=== PATIENT | male | born 1995 | race Caucasian/White ===

== ENCOUNTER 2023-08-14 14:31 | Outpatient (CLI) | payer BC, SELFPAY ==
--- NOTE | 2023-08-14 15:00 | USCV_ITS ---
Burt Olmedo Age: 28 Gender: M : 1995 Exam Date: 08/14/2023 14:53 Ordering Phys: Brad Mcbride MD Technologist: GUICHO Exam Location: [facility] – [place], [place]_ Indication: DIZZINESS Risk Factors: Previous Vascular Surgery: Right Brachial BP: / Left Brachial BP: / Right Left Velocity (cm/s) Spectral Plaque Velocity (cm/s) Spectral Plaque Syst/Diast Broadening Syst/Diast Broadening 107.50/19.90 Prox CCA 103.70/ 15.70 92.90/ 16.20 Mid CCA 97.70 / 20.00 86.20/ 15.40 Distal CCA 77.60 / 13.70 64.40/ 20.90 Prox ICA 70.00 / 15.80 75.30/ 26.30 Mid ICA 54.10 / 17.70 50.00/ 18.10 Distal ICA 54.10 / 19.30 104.30 ECA 102.00 0.90 ICA/CCA 0.90 Antegrade Vertebral Antegrade 45.60/ 8.20 cm/s 45.90/ 9.00 cm/s Tri Subclavian Tri 122.5 160.4 0 0 FINDINGS Comparison: none available. No significant elevation of systolic or diastolic velocities. No significant amount of calcified plaque or intimal thickening identified. Waveforms are normal. CONCLUSIONS Normal carotid doppler ultrasound. Dr. Donna Churchill DO (Electronically Signed) Final Date: 14 August 2023 15:37 S
== END 2023-08-14 14:32 | disposition home or self-care (01) ==
LOC: RAD 14:32
PROVIDERS: Visit Provider Psychiatry & Neurology Neurology
DX: R26.89 Other abnormalities of gait and mobility (principal)
CPT/HCPCS: 93880

== ENCOUNTER 2023-09-13 14:12 | Outpatient (CLI) | payer BC, MEDICAID, SELFPAY ==
--- NOTE | 2023-09-13 15:15 | MR_ITS ---
WS: [id number] MRI CERVICAL SPINE NONCONTRAST TECHNIQUE: Sagittal T1, T2 and STIR imaging. Axial T2, gradient, and fiesta imaging. CLINICAL INFORMATION: M54.2 - Cervicalgia COMPARISON: None. FINDINGS: Straightening with slight reversal of normal cervical lordosis. C2-C3: Normal. C3-C4: Minimal disc bulging. Mild facet arthropathy. Spinal canal and foramen are patent. C4-C5: Minimal disc bulging. Slight effacement of the ventral thecal sac. Mild endplate ridging. Mild facet arthropathy. Foramen are patent. C5-C6: Mild disc bulge with endplate ridging. Moderate facet arthropathy. Foramen are patent. C6-C7: No significant disc bulging. Moderate facet arthropathy. Mild LEFT foraminal narrowing. C7-T1: Moderate facet arthropathy. Spinal canal and foramen are patent. Visualized brain stem structures: Normal. Prevertebral soft tissues: Normal. MR/MR cervical spin wo con* [id number] IMPRESSION: 1. Straightening with slight reversal of normal cervical lordosis. 2. Moderate facet arthropathy C5-C6, C6-C7, and C7-T1 3. Mild bony foraminal narrowing LEFT C6-7. 4. Cord signal is normal. 5. No significant central canal stenosis.
[2023-09-13] MEDS: gadobenate dimeglumine 20 mL vial IV (15:31)
--- NOTE | 2023-09-13 16:00 | MR_ITS ---
WS: [id number] MRI HEAD WITH CONTRAST TECHNIQUE: Sagittal T1, T2 axial, T2 axial FLAIR, axial susceptibility weighted imaging, axial diffus ion weighted images, and coronal T2 images were obtained. Pre and post-T1 axial and post T1 coronal i mages. ADC and FSPGR images. CLINICAL INFORMATION: G43.909 - Migraine, unspecified, not intractable, without... COMPARISON: None. FINDINGS: Flow void with small aneurysm or tangle of vessels adjacent to the LEFT midbrain involving the LEFT COOK TACO measuring approximately 7.1 x 6.5 x 9.0 mm. Findings suspicious for aneurysm or vascular malformation. Recommend further evaluation with CTA for better anatomic detail. This appears to be s upplied by the LEFT COOK TACO. This partially abuts the LEFT tentorium. Also consider dural AV fistula or t iny AVM. No evidence of restricted diffusion to suggest acute ischemia. Ventricular system and basal cisterns are patent. No suspicious intracranial signal abnormalities. Normal rutledge-white differentiation. Kika l posterior fossa. Normal vascular flow voids at the skull base. Incidental prominent perivascular sp aces in the basal ganglia. Paranasal sinuses and mastoid air cells are well aerated. No hemosiderin on the susceptibly weighted images. Normal optic chiasm and pituitary infundibulum. Te mporal lobe and hippocampal formations are normal in appearance. Otherwise no abnormal gadolinium enhancement. Normal optic chiasm and pituitary infundibulum. MR/MR head wo/w con [id number] IMPRESSION: 1. Indeterminate enhancing vascular nidus adjacent to the LEFT cerebral pedunc le suspicious for small aneurysm or vascular malformation. Also consider small AVM or dural AV fistula. Recommend further evaluation with CTA for better anato radha detail. 2. No evidence of restricted diffusion to suggest acute ischemia. 3. Otherwise no suspicious intracranial signal abnormalities. 4. No hemosiderin on the susceptibility weighted images. 5. Normal optic chiasm and pituitary infundibulum. 6. No other suspicious findings.
== END 2023-09-13 14:13 | disposition home or self-care (01) ==
LOC: RAD 14:13
PROVIDERS: Visit Provider Psychiatry & Neurology Neurology
DX: M54.2 Cervicalgia (principal); G43.909 Migraine, unspecified, not intractable, without status migrainosus; M47.812 Spondylosis without myelopathy or radiculopathy, cervical region; M48.02 Spinal stenosis, cervical region
CPT/HCPCS: 70553; 72141; A9577

== ENCOUNTER 2023-10-11 14:02 | Outpatient (CLI) | payer BC, SELFPAY ==
[2023-10-11] MEDS: iohexol 350 mg/mL 500 mL Btl (per mL) IV (14:27)
--- NOTE | 2023-10-11 15:30 | CT_ITS ---
WS: [id number] CT ANGIOGRAM CEREBRAL AND CAROTID ARTERIES HISTORY: G44.309 - Post-traumatic headache, unspecified, dizziness. TECHNIQUE: CT angiogram is performed of the carotid and cerebral arteries. During arterial injection imaging is obtained from the skull vertex to the aortic arch in 1.25 mm imaging. Coronal and sagittal reformats are submitted. Additional multi planar reformats of the carotid and cerebral arteries are submitted, MIP imaging also reviewed. NASCET criteria utilized. [facility] CT [facility] at least one of these dose optimization techniques: automated exposure control; mA and/or kV adjust ment per patient size (includes targeted exams where dose is matched to clinical indication); or iter ative reconstruction. CONTRAST: Omnipaque 350; 100 mL IV. DLP: 1344.63 mGy.cm COMPARISON: MRI brain 09/13/[address] head first performed. Prominent perivascular spaces along the inferior basal ganglia r eidentified. There is a hyperechoic focus corresponding to the MRI abnormality described as a possibl e aneurysm at the level of the LEFT midbrain. Carotid Angiogram: Right carotid: Common carotid artery: Arises normally from the innominate artery. No significant plaque or stenosis. Internal carotid artery: No plaque or stenosis. External carotid artery: Patent. Left carotid: Common carotid artery: Arises normally from the aorta. No significant plaque or stenosis. Internal carotid artery: No plaque or stenosis. External carotid artery: Patent. Right vertebral artery: Small caliber RIGHT vertebral artery (patent. Left vertebral artery: Dominant LEFT vertebral artery. Subclavian arteries: No stenosis or significant abnormality. Upper thorax: Normal. Thyroid gland: Normal. Osseous structures: Straightening of the normal cervical lordosis. CEREBRAL ANGIOGRAM: Intracranial vertebral arteries: Normal with no significant atherosclerosis. Basilar artery: No significant stenosis or occlusion. No aneurysm. Intracranial Internal carotid arteries: Demonstrates no significant stenosis or plaque. Middle cerebral arteries: Normal. Anterior cerebral arteries and ACOM: Normal. Posterior cerebral arteries and PCOM's: Normal P1 and P2 segments. In the distal LEFT quadrigeminal s egment/P3 segment of the posterior cerebral artery is an aneurysm measuring transversely 7.0, AP 7.0 and superior-inferior 10.0 mm. This aneurysm is at the level of the midbrain and corresponds to the findings described on recent MR. Small caliber posterior communicating arteries. Dural venous sinuses are normally enhancing. Mastoid air cells: Normal. Paranasal sinuses: Normal. Calvarium: Normal. CT/CT angio headneck* [id number] IMPRESSION: 1. 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 This corresponds to the finding seen on the prior MRI. 2. No additional aneurysms or stenosis. 3. Normal cervical carotid arteries. 4. Small caliber but patent RIGHT vertebral artery.
== END 2023-10-11 14:03 | disposition home or self-care (01) ==
LOC: RAD 14:03
PROVIDERS: Visit Provider Psychiatry & Neurology Neurology
DX: G44.309 Post-traumatic headache, unspecified, not intractable (principal); R29.818 Other symptoms and signs involving the nervous system; I67.1 Cerebral aneurysm, nonruptured
CPT/HCPCS: 70496; 70498; Q9967